=== PATIENT | female | born 1955 | race Caucasian/White ===

== ENCOUNTER 2020-04-04 05:49 | Inpatient (IN) ==
[2020-03-27 12:05] LABS: Basophils # 0.2 10*3/uL (0.0-0.2); Eosinophils # 0.2 10*3/uL (0.0-0.87); Eosinophils % 1.5 % (0.00-10.9); Hematocrit 40.9 VOL% (35.7-47.0); Hemoglobin 12.9 GM/DL (12.0-16.0); Immature Granulocytes % 0.5 %; Immature Granulocytes Absolute 0.07 #; Lymphocytes # 1.1 10*3/uL (1.4-4.0); Lymphocytes % 7.1 % (21.3-54.2); Mean Corpuscular HGB Conc 31.5 GM/DL (32-36); Mean Corpuscular Volume 85.9 FL (87-102); Mean Platelet Volume 9.7 FL (9.6-12.0); Monocytes % 5.6 % (1.7-12.7); Neutrophils % 84.3 % (38.7-73.9); Platelet Count 406 T/CUMM (130-400); Red Blood Count 4.76 MC/CUMM (3.8-5.5)
[2020-03-27 12:15] LABS: Calcium 9.5 MG/DL (8.5-10.1); Osmolality,Calculated 274.7 MOS/KG (273-304)
[2020-04-04] MEDS ORDERED: ceFAZolin 2,000 MG in PREMIX 1 EACH IV ONE (06:30)
[2020-04-04] MEDS ORDERED: FAMOTIDINE 20 MG TABLET PO ONE (06:51)
[2020-04-04] MEDS ORDERED: GABAPENTIN 400 MG CAPSULE PO ONE (06:51)
[2020-04-04] MEDS ORDERED: DIAZEPAM 5 MG TABLET PO ONE (06:51)
[2020-04-04] MEDS ORDERED: ACETAMINOPHEN 500 MG TABLET PO ONE (06:51)
[2020-04-04] MEDS ORDERED: LACTATED RINGERS 1,000 ML IV SCH (07:00)
[2020-04-04] MEDS ORDERED: ACETAMINOPHEN 325 MG TABLET PO PRN (14:00)
[2020-04-04] MEDS ORDERED: ALBUTEROL/IPRATROPIUM 3 ML NEB RESP TX PRN (14:00)
[2020-04-04] MEDS ORDERED: LIDOCAINE 2% 5 ML VIAL ONE (14:14)
[2020-04-04] MEDS ORDERED: SEVOFLURANE 1 UNIT/15 MINUTE INH ONE (14:14)
[2020-04-04] MEDS ORDERED: propofoL 200 MG/20 ML VIAL IV ONE (14:14)
[2020-04-04] MEDS ORDERED: ePHEDrine 50 MG/ML VIAL ONE (14:15)
[2020-04-04] MEDS ORDERED: MIDAZOLAM 2 MG/2 ML VIAL ONE (14:15)
[2020-04-04] MEDS ORDERED: DEXAMETHASONE 4 MG/1 ML VIAL ONE (14:15)
[2020-04-04] MEDS ORDERED: fentaNYL 100 MCG/2 ML VIAL ONE (14:15)
[2020-04-04] MEDS ORDERED: ROCURONIUM 100 MG/10 ML VIAL IV ONE (14:16)
[2020-04-04] MEDS ORDERED: PHENYLEPHRINE 1 MG/10 ML SYRINGE IV ONE (14:16)
[2020-04-04] MEDS: HYDROmorphone 2 MG/1 ML VIAL IV PRN ×8 (14:21→22:19)
[2020-04-04] MEDS ORDERED: ONDANSETRON 4 MG/2 ML VIAL IV PRN (14:24)
[2020-04-04 14:46] LABS: Bilirubin,Urine Negative (Negative); Blood, Urine Negative (Negative); Glucose,Urine (UA) Negative (Negative); Hyaline Casts,Urine 1 /LPF (0-3); Ketones,Urine Negative (Negative); Mucus,Urine Occasional /LPF (Occasional); Nitrite,Urine Negative (Negative); Protein,Urine Negative; RBC,Urine 2 /HPF (0-4); Squamous Epithelial Cell,Urine Occasional /HPF (0-10); Urine Appearance CLEAR (Clear); Urine Color Yellow (Yellow); Urine Specific Gravity 1.015 (1.001-1.035); Urine Urobilinogen < 2.0 EU/DL (0.2-1.0); WBC,Urine 3 /HPF (0-6)
[2020-04-04] MEDS ORDERED: MEPERIDINE 25 MG/1 ML VIAL ONE (14:51)
[2020-04-04] MEDS ORDERED: MEPERIDINE 25 MG/1 ML VIAL IV ONE (14:57)
[2020-04-04] MEDS: GABAPENTIN 600 MG TABLET PO SCH ×2 (17:04→21:26)
[2020-04-04] MEDS: KETOROLAC 15 MG/1 ML VIAL IV PRN (17:08)
[2020-04-04] MEDS: LACTATED RINGERS 1,000 ML IV SCH (17:17)
[2020-04-04] MEDS: CYCLOBENZAPRINE 10 MG TABLET PO SCH (21:26)
[2020-04-04] MEDS: METOCLOPRAMIDE 10 MG TABLET PO SCH (21:26)
[2020-04-04] MEDS: ceFAZolin 2,000 MG in PREMIX 1 EACH IV SCH (21:26)
[2020-04-05] MEDS: KETOROLAC 15 MG/1 ML VIAL IV PRN ×2 (00:10→09:59)
[2020-04-05] MEDS: ONDANSETRON 4 MG/2 ML VIAL IV PRN ×2 (00:26→08:12)
[2020-04-05] MEDS: HYDROmorphone 2 MG/1 ML VIAL IV PRN ×7 (01:36→20:25)
[2020-04-05] MEDS: LACTATED RINGERS 1,000 ML IV SCH ×3 (01:38→20:19)
[2020-04-05] MEDS: ceFAZolin 2,000 MG in PREMIX 1 EACH IV SCH (05:21)
[2020-04-05 05:58] LABS: Basophils % 0.3 % (0.0-0.8); Eosinophils # 0.5 10*3/uL (0.0-0.87); Eosinophils % 5.2 % (0.00-10.9); Hematocrit 33.8 VOL% (35.7-47.0); Hemoglobin 10.7 GM/DL (12.0-16.0); Immature Granulocytes Absolute 0.09 #; Lymphocytes # 0.8 10*3/uL (1.4-4.0); Lymphocytes % 9.3 % (21.3-54.2); Mean Corpuscular HGB Conc 31.7 GM/DL (32-36); Mean Corpuscular Volume 86.9 FL (87-102); Mean Platelet Volume 8.9 FL (9.6-12.0); Monocytes % 5.2 % (1.7-12.7); Platelet Count 302 T/CUMM (130-400); Red Blood Count 3.89 MC/CUMM (3.8-5.5); Red Cell Distribution Width 14.6 % (9.3-17.3); White Blood Count 8.9 T/CUMM (4-12)
[2020-04-05 06:55] LABS: Alanine Aminotransferase 21 U/L (13-56); Albumin 2.5 G/DL (3.4-5.0); Alkaline Phosphatase 64 U/L (45-117); Aspartate Amino Transferase 44 U/L (0-37); Bilirubin,Total < 0.39 MG/DL (0.2-1.0); Blood Urea Nitrogen 4 MG/DL (7-18); Calcium 8.4 MG/DL (8.5-10.1); Estimated Glom Filtration Rate 91 ML/MIN; Glucose 81 MG/DL (74-106); Osmolality,Calculated 268.8 MOS/KG (273-304); Total Protein 6.1 G/DL (6.4-8.3)
[2020-04-05] MEDS: METOCLOPRAMIDE 10 MG TABLET PO SCH (10:02)
[2020-04-05] MEDS: PANTOPRAZOLE 40 MG VIAL IV SCH (10:03)
[2020-04-05] MEDS: PROMETHAZINE INJ 12.5 MG in SODIUM CHLORIDE 0.9% 50 ML IV PRN ×2 (10:10→18:34)
[2020-04-05] MEDS: GABAPENTIN 600 MG TABLET PO SCH ×3 (11:01→20:27)
[2020-04-05] MEDS: CYCLOBENZAPRINE 10 MG TABLET PO SCH ×3 (11:01→20:23)
[2020-04-05] MEDS: SERTRALINE 100 MG TABLET PO SCH (11:14)
[2020-04-05] MEDS: ENOXAPARIN 40 MG/0.4 ML SYRINGE SUBCUT SCH (11:15)
[2020-04-05] MEDS: KETOROLAC 15 MG/1 ML VIAL IV SCH ×2 (16:30→22:01)
[2020-04-05 16:37] LABS: Hematocrit 38.8 VOL% (35.7-47.0); Hemoglobin 12.4 GM/DL (12.0-16.0)
[2020-04-06] MEDS: HYDROmorphone 2 MG/1 ML VIAL IV PRN ×9 (00:27→23:26)
[2020-04-06] MEDS: LACTATED RINGERS 1,000 ML IV SCH ×3 (02:39→13:06)
[2020-04-06] MEDS: KETOROLAC 15 MG/1 ML VIAL IV SCH ×4 (03:38→23:27)
[2020-04-06 03:49] LABS: Basophils % 0.4 % (0.0-0.8); Eosinophils % 10.6 % (0.00-10.9); Hematocrit 35.9 VOL% (35.7-47.0); Hemoglobin 11.5 GM/DL (12.0-16.0); Immature Granulocytes % 0.7 %; Immature Granulocytes Absolute 0.07 #; Lymphocytes # 1.2 10*3/uL (1.4-4.0); Lymphocytes % 11.7 % (21.3-54.2); Mean Corpuscular Volume 85.1 FL (87-102); Monocytes % 5.3 % (1.7-12.7); Neutrophils % 71.3 % (38.7-73.9); Platelet Count 307 T/CUMM (130-400); Red Blood Count 4.22 MC/CUMM (3.8-5.5); Red Cell Distribution Width 14.1 % (9.3-17.3); White Blood Count 9.8 T/CUMM (4-12)
[2020-04-06 04:24] LABS: Albumin 2.6 G/DL (3.4-5.0); Bilirubin,Total 0.5 MG/DL (0.2-1.0); Calcium 8.3 MG/DL (8.5-10.1); Total Protein 6.2 G/DL (6.4-8.3)
[2020-04-06] MEDS ORDERED: DEXTROSE 50% 25 GM/50 ML VIAL IV ONE (04:42)
[2020-04-06] MEDS ORDERED: DEXTROSE 50% 25 GM/50 ML VIAL IV PRN (04:44)
[2020-04-06] MEDS: ARFORMOTEROL 15 MCG/2 ML NEB RESP TX SCH ×2 (09:10→19:49)
[2020-04-06] MEDS: ENOXAPARIN 40 MG/0.4 ML SYRINGE SUBCUT SCH (10:16)
[2020-04-06] MEDS: CYCLOBENZAPRINE 10 MG TABLET PO SCH ×3 (10:17→21:14)
[2020-04-06] MEDS: SERTRALINE 100 MG TABLET PO SCH (10:17)
[2020-04-06] MEDS: GABAPENTIN 600 MG TABLET PO SCH ×3 (10:17→21:13)
[2020-04-06] MEDS: PANTOPRAZOLE 40 MG VIAL IV SCH (10:18)
[2020-04-06] MEDS: methylPREDNISolone SOD SUC 40 MG/1 ML VIAL IV SCH ×2 (10:19→21:17)
[2020-04-06] MEDS: PROMETHAZINE INJ 12.5 MG in SODIUM CHLORIDE 0.9% 50 ML IV PRN (11:03)
[2020-04-06] MEDS: oxyCODONE/ACETAMINOPHEN 5-325 MG TABLET PO SCH ×2 (14:33→21:27)
[2020-04-06] MEDS ORDERED: ALBUTEROL/IPRATROPIUM 3 ML NEB RESP TX SCH (15:00)
[2020-04-06 15:35] LABS: Bilirubin,Urine Negative (Negative); Blood, Urine Large mg/dL (Negative); Glucose,Urine (UA) 50 mg/dL (Negative); Ketones,Urine 20 mg/dL (Negative); Mucus,Urine Occasional /LPF (Occasional); Nitrite,Urine Negative (Negative); Protein,Urine Negative; RBC,Urine 260 /HPF (0-4); Urine Appearance CLEAR (Clear); Urine Color Yellow (Yellow); Urine Specific Gravity 1.014 (1.001-1.035); Urine Urobilinogen < 2.0 EU/DL (0.2-1.0); WBC,Urine 4 /HPF (0-6)
[2020-04-06] MEDS: PIPERACILLIN/TAZOBACTAM 3,375 MG in SODIUM CHLORIDE 0.9% 100 ML IV SCH ×2 (16:51→23:27)
[2020-04-06] MEDS: ZALEPLON 5 MG CAPSULE PO SCH (21:14)
[2020-04-07] MEDS: HYDROmorphone 2 MG/1 ML VIAL IV PRN ×3 (02:23→23:20)
[2020-04-07] MEDS: oxyCODONE/ACETAMINOPHEN 5-325 MG TABLET PO SCH ×2 (04:14→09:10)
[2020-04-07] MEDS: KETOROLAC 15 MG/1 ML VIAL IV SCH ×4 (04:57→22:22)
[2020-04-07] MEDS: LACTATED RINGERS 1,000 ML IV SCH ×4 (05:59→22:22)
[2020-04-07] MEDS: PIPERACILLIN/TAZOBACTAM 3,375 MG in SODIUM CHLORIDE 0.9% 100 ML IV SCH ×3 (06:27→22:22)
[2020-04-07] MEDS: ARFORMOTEROL 15 MCG/2 ML NEB RESP TX SCH ×2 (07:24→23:26)
[2020-04-07] MEDS: PROMETHAZINE 25 MG/1 ML VIAL IM PRN ×2 (08:04→13:42)
[2020-04-07] MEDS: methylPREDNISolone SOD SUC 40 MG/1 ML VIAL IV SCH ×2 (09:09→20:51)
[2020-04-07] MEDS: PANTOPRAZOLE 40 MG VIAL IV SCH (09:09)
[2020-04-07] MEDS: GABAPENTIN 600 MG TABLET PO SCH ×3 (09:09→20:50)
[2020-04-07] MEDS: SERTRALINE 100 MG TABLET PO SCH (09:10)
[2020-04-07] MEDS: CYCLOBENZAPRINE 10 MG TABLET PO SCH ×3 (09:10→20:51)
[2020-04-07] MEDS: ENOXAPARIN 40 MG/0.4 ML SYRINGE SUBCUT SCH (09:10)
[2020-04-07] MEDS: ONDANSETRON 4 MG/2 ML VIAL IV PRN ×2 (12:02→20:00)
[2020-04-07 13:17] LABS: Bilirubin,Urine Negative (Negative); Blood, Urine Small mg/dL (Negative); Glucose,Urine (UA) Negative (Negative); Ketones,Urine Negative (Negative); Nitrite,Urine Negative (Negative); Protein,Urine Negative; RBC,Urine 4 /HPF (0-4); Squamous Epithelial Cell,Urine Occasional /HPF (0-10); Urine Appearance CLEAR (Clear); Urine Color Straw (Yellow); Urine Specific Gravity 1.006 (1.001-1.035); Urine Urobilinogen < 2.0 EU/DL (0.2-1.0)
[2020-04-07] MEDS ORDERED: MAGNESIUM SULF RIDER 4 GM in PREMIX 1 EACH IV ONE (13:32)
[2020-04-07] MEDS: HYDROmorphone 2 MG TABLET PO SCH ×2 (13:42→20:51)
[2020-04-07] MEDS ORDERED: MAGNESIUM SULF RIDER 4 GM in PREMIX 1 EACH IV PRN (13:43)
[2020-04-07] MEDS: POTASSIUM CHLORIDE 20 MEQ TABLET PO PRN ×3 (14:55→18:26)
[2020-04-07] MEDS: ACETAMINOPHEN 500 MG TABLET PO SCH ×2 (14:56→20:50)
[2020-04-07] MEDS ORDERED: BENZONATATE 100 MG CAPSULE PO ONE (20:30)
[2020-04-07] MEDS: ZALEPLON 5 MG CAPSULE PO SCH (20:51)
[2020-04-08] MEDS: HYDROmorphone 2 MG TABLET PO SCH ×4 (01:43→19:16)
[2020-04-08] MEDS: KETOROLAC 15 MG/1 ML VIAL IV SCH ×4 (04:45→22:41)
[2020-04-08 05:34] LABS: Basophils % 0.4 % (0.0-0.8); Eosinophils # 0.2 10*3/uL (0.0-0.87); Eosinophils % 1.8 % (0.00-10.9); Hematocrit 33.2 VOL% (35.7-47.0); Hemoglobin 10.7 GM/DL (12.0-16.0); Immature Granulocytes % 0.7 %; Immature Granulocytes Absolute 0.08 #; Lymphocytes # 0.9 10*3/uL (1.4-4.0); Lymphocytes % 8.5 % (21.3-54.2); Mean Corpuscular HGB Conc 32.2 GM/DL (32-36); Mean Corpuscular Volume 85.3 FL (87-102); Mean Platelet Volume 9.1 FL (9.6-12.0); Monocytes % 3.8 % (1.7-12.7); Neutrophils % 84.8 % (38.7-73.9); Platelet Count 343 T/CUMM (130-400); Red Blood Count 3.89 MC/CUMM (3.8-5.5); Red Cell Distribution Width 13.7 % (9.3-17.3); White Blood Count 10.7 T/CUMM (4-12)
[2020-04-08 05:53] LABS: Calcium 8.3 MG/DL (8.5-10.1); Osmolality,Calculated 274.7 MOS/KG (273-304)
[2020-04-08] MEDS: PIPERACILLIN/TAZOBACTAM 3,375 MG in SODIUM CHLORIDE 0.9% 100 ML IV SCH ×3 (06:27→22:44)
[2020-04-08] MEDS: ARFORMOTEROL 15 MCG/2 ML NEB RESP TX SCH ×2 (07:30→19:58)
[2020-04-08] MEDS: GABAPENTIN 600 MG TABLET PO SCH ×3 (09:04→21:15)
[2020-04-08] MEDS: ACETAMINOPHEN 500 MG TABLET PO SCH ×3 (09:05→21:15)
[2020-04-08] MEDS: SERTRALINE 100 MG TABLET PO SCH (09:05)
[2020-04-08] MEDS: CYCLOBENZAPRINE 10 MG TABLET PO SCH ×3 (09:05→21:15)
[2020-04-08] MEDS: PANTOPRAZOLE 40 MG VIAL IV SCH (09:06)
[2020-04-08] MEDS: ENOXAPARIN 40 MG/0.4 ML SYRINGE SUBCUT SCH (09:07)
[2020-04-08] MEDS: methylPREDNISolone SOD SUC 40 MG/1 ML VIAL IV SCH ×2 (09:12→21:15)
[2020-04-08] MEDS: HYDROmorphone 2 MG/1 ML VIAL IV PRN ×2 (09:21→15:16)
[2020-04-08 16:02] LABS: Bilirubin,Urine Negative (Negative); Blood, Urine Negative (Negative); Glucose,Urine (UA) Negative (Negative); Ketones,Urine Negative (Negative); Nitrite,Urine Negative (Negative); Protein,Urine Negative; RBC,Urine 1 /HPF (0-4); Squamous Epithelial Cell,Urine Occasional /HPF (0-10); Urine Appearance CLEAR (Clear); Urine Color Yellow (Yellow); Urine Specific Gravity 1.011 (1.001-1.035); Urine Urobilinogen < 2.0 EU/DL (0.2-1.0); WBC,Urine 1 /HPF (0-6)
[2020-04-08] MEDS: LACTATED RINGERS 1,000 ML IV SCH (17:12)
[2020-04-08] MEDS: ZALEPLON 5 MG CAPSULE PO SCH (21:15)
[2020-04-09] MEDS: HYDROmorphone 2 MG TABLET PO SCH ×4 (01:40→19:23)
[2020-04-09] MEDS: KETOROLAC 15 MG/1 ML VIAL IV SCH ×4 (04:47→22:07)
[2020-04-09] MEDS: PIPERACILLIN/TAZOBACTAM 3,375 MG in SODIUM CHLORIDE 0.9% 100 ML IV SCH ×3 (06:20→22:09)
[2020-04-09 07:31] LABS: Basophils # 0.1 10*3/uL (0.0-0.2); Basophils % 0.8 % (0.0-0.8); Eosinophils # 1.5 10*3/uL (0.0-0.87); Eosinophils % 10.9 % (0.00-10.9); Hematocrit 34.1 VOL% (35.7-47.0); Hemoglobin 10.8 GM/DL (12.0-16.0); Immature Granulocytes % 0.5 %; Immature Granulocytes Absolute 0.07 #; Lymphocytes # 1.7 10*3/uL (1.4-4.0); Lymphocytes % 12.4 % (21.3-54.2); Mean Corpuscular HGB Conc 31.7 GM/DL (32-36); Mean Platelet Volume 8.6 FL (9.6-12.0); Neutrophils % 70.4 % (38.7-73.9); Platelet Count 324 T/CUMM (130-400); Red Blood Count 3.92 MC/CUMM (3.8-5.5); Red Cell Distribution Width 14.2 % (9.3-17.3); White Blood Count 13.9 T/CUMM (4-12)
[2020-04-09 08:04] LABS: Alanine Aminotransferase 12 U/L (13-56); Albumin 2.4 G/DL (3.4-5.0); Alkaline Phosphatase 61 U/L (45-117); Aspartate Amino Transferase 15 U/L (0-37); Bilirubin,Total < 0.39 MG/DL (0.2-1.0); Blood Urea Nitrogen 5 MG/DL (7-18); Calcium 8.6 MG/DL (8.5-10.1); Estimated Glom Filtration Rate 88 ML/MIN; Glucose 79 MG/DL (74-106); Osmolality,Calculated 274.4 MOS/KG (273-304); Total Protein 6.1 G/DL (6.4-8.3)
[2020-04-09] MEDS: ARFORMOTEROL 15 MCG/2 ML NEB RESP TX SCH ×2 (08:05→19:45)
[2020-04-09] MEDS: LACTATED RINGERS 1,000 ML IV SCH ×2 (08:33)
[2020-04-09] MEDS: SERTRALINE 100 MG TABLET PO SCH (08:33)
[2020-04-09] MEDS: GABAPENTIN 600 MG TABLET PO SCH ×3 (08:34→20:03)
[2020-04-09] MEDS: ENOXAPARIN 40 MG/0.4 ML SYRINGE SUBCUT SCH (08:35)
[2020-04-09] MEDS: CYCLOBENZAPRINE 10 MG TABLET PO SCH ×3 (08:35→20:03)
[2020-04-09] MEDS: methylPREDNISolone SOD SUC 40 MG/1 ML VIAL IV SCH ×2 (08:35→20:04)
[2020-04-09] MEDS: ACETAMINOPHEN 500 MG TABLET PO SCH ×3 (08:35→22:05)
[2020-04-09] MEDS: PANTOPRAZOLE 40 MG VIAL IV SCH (08:36)
[2020-04-09 10:37] LABS: Eosinophils 12 % (0-10); Hypochromasia 1+; Lymphocytes 10 % (20-55); Microcytosis 1+; Ovalocytes Slight; Platelet Estimate Normal; Segmented Neutrophils 74 % (50-85); Total Cells Counted 100
[2020-04-09] MEDS: ZALEPLON 5 MG CAPSULE PO SCH (20:03)
[2020-04-10] MEDS: HYDROmorphone 2 MG TABLET PO SCH ×2 (00:30→06:31)
[2020-04-10] MEDS: KETOROLAC 15 MG/1 ML VIAL IV SCH ×2 (04:28→10:08)
[2020-04-10] MEDS: PIPERACILLIN/TAZOBACTAM 3,375 MG in SODIUM CHLORIDE 0.9% 100 ML IV SCH (06:31)
[2020-04-10] MEDS: ARFORMOTEROL 15 MCG/2 ML NEB RESP TX SCH (07:34)
[2020-04-10] MEDS: GABAPENTIN 600 MG TABLET PO SCH (09:43)
[2020-04-10] MEDS: CYCLOBENZAPRINE 10 MG TABLET PO SCH (09:43)
[2020-04-10] MEDS: PROMETHAZINE 25 MG/1 ML VIAL IM PRN (09:43)
[2020-04-10] MEDS: SERTRALINE 100 MG TABLET PO SCH (09:43)
[2020-04-10] MEDS: ENOXAPARIN 40 MG/0.4 ML SYRINGE SUBCUT SCH (09:44)
[2020-04-10] MEDS: methylPREDNISolone SOD SUC 40 MG/1 ML VIAL IV SCH (09:44)
[2020-04-10] MEDS: PANTOPRAZOLE 40 MG VIAL IV SCH (09:45)
[2020-04-10] MEDS: HYDROmorphone 2 MG/1 ML VIAL IV PRN (10:08)
[2020-04-10] MEDS: ACETAMINOPHEN 500 MG TABLET PO SCH (12:27)
[2020-04-10 13:18] VITALS: BP 137/76
== END 2020-04-10 12:58 | disposition home health service (06) | DRG 329 ==
LOC: N.OR 05:49 → N.SDSINP 05:50 → EDSTATUS 07:30 → N.4E 14:00
PROVIDERS: ADMIT Surgery; ATTEND Surgery

== ENCOUNTER 2020-04-12 13:27 | Inpatient (IN) ==
[2020-04-12] MEDS ORDERED: SODIUM CHLORIDE 0.9% 1,000 ML IV STA (14:35)
[2020-04-12] MEDS ORDERED: ACETAMINOPHEN 325 MG TABLET PO PRN (14:40)
[2020-04-12] MEDS ORDERED: ALBUTEROL/IPRATROPIUM 3 ML NEB RESP TX PRN (14:40)
[2020-04-12] MEDS ORDERED: PROMETHAZINE 25 MG/1 ML VIAL IM PRN (14:40)
[2020-04-12 15:00] LABS: Basophils # 0.2 10*3/uL (0.0-0.2); Basophils % 0.8 % (0.0-0.8); Eosinophils # 0.2 10*3/uL (0.0-0.87); Hematocrit 43.9 VOL% (35.7-47.0); Hemoglobin 14.2 GM/DL (12.0-16.0); Immature Granulocytes % 0.6 %; Immature Granulocytes Absolute 0.14 #; Lymphocytes % 9.1 % (21.3-54.2); Mean Corpuscular HGB Conc 32.3 GM/DL (32-36); Mean Corpuscular Volume 84.4 FL (87-102); Mean Platelet Volume 9.1 FL (9.6-12.0); Neutrophils % 85.5 % (38.7-73.9); Platelet Count 563 T/CUMM (130-400); Red Cell Distribution Width 13.9 % (9.3-17.3); White Blood Count 22.5 T/CUMM (4-12)
[2020-04-12 15:20] LABS: Band Neutrophils 5 % (0-10); Lymphocytes 11 % (20-55); Platelet Estimate Increased; Segmented Neutrophils 83 % (50-85); Total Cells Counted 100
[2020-04-12 15:24] LABS: Alanine Aminotransferase 16 U/L (13-56); Alkaline Phosphatase 87 U/L (45-117); Aspartate Amino Transferase 19 U/L (0-37); Bilirubin,Total < 0.39 MG/DL (0.2-1.0); Blood Urea Nitrogen 22 MG/DL (7-18); Calcium 9.1 MG/DL (8.5-10.1); Estimated Glom Filtration Rate 30 ML/MIN; Glucose 106 MG/DL (74-106); Osmolality,Calculated 270.2 MOS/KG (273-304); Total Protein 7.8 G/DL (6.4-8.3)
[2020-04-12] MEDS: HYDROmorphone 2 MG/1 ML VIAL IV PRN ×2 (15:34→21:20)
[2020-04-12] MEDS: cefOXitin 1,000 MG in SYRINGE 1 EACH IV SCH ×2 (16:51→22:54)
[2020-04-12] MEDS: CYCLOBENZAPRINE 10 MG TABLET PO SCH ×2 (16:52→21:23)
[2020-04-12] MEDS: LACTATED RINGERS 1,000 ML IV SCH ×2 (18:10→23:00)
[2020-04-12] MEDS: GABAPENTIN 600 MG TABLET PO SCH (21:23)
[2020-04-12] MEDS: ZALEPLON 5 MG CAPSULE PO SCH (21:23)
[2020-04-12 21:57] LABS: Bacteria,Urine Occasional /HPF (Few); Bilirubin,Urine Negative (Negative); Blood, Urine Small mg/dL (Negative); Glucose,Urine (UA) Negative (Negative); Ketones,Urine Negative (Negative); Nitrite,Urine Negative (Negative); Protein,Urine Negative; RBC,Urine 1 /HPF (0-4); Squamous Epithelial Cell,Urine Occasional /HPF (0-10); Urine Appearance CLEAR (Clear); Urine Color Straw (Yellow); Urine Specific Gravity 1.019 (1.001-1.035); Urine Urobilinogen < 2.0 EU/DL (0.2-1.0); WBC,Urine <1 /HPF (0-6)
[2020-04-12] MEDS: METOCLOPRAMIDE 5 MG TABLET PO SCH (23:55)
[2020-04-13] MEDS: LACTATED RINGERS 1,000 ML IV SCH ×3 (03:50→16:27)
[2020-04-13] MEDS: cefOXitin 1,000 MG in SYRINGE 1 EACH IV SCH ×3 (04:46→21:08)
[2020-04-13 06:06] LABS: Calcium 8.2 MG/DL (8.5-10.1); Osmolality,Calculated 271.8 MOS/KG (273-304)
[2020-04-13] MEDS: HYDROmorphone 2 MG/1 ML VIAL IV PRN ×4 (07:23→20:59)
[2020-04-13] MEDS: GABAPENTIN 600 MG TABLET PO SCH ×4 (07:57→21:00)
[2020-04-13] MEDS: METOCLOPRAMIDE 5 MG TABLET PO SCH ×5 (07:57→21:01)
[2020-04-13 08:13] LABS: Basophils # 0.2 10*3/uL (0.0-0.2); Basophils % 1.4 % (0.0-0.8); Eosinophils # 0.8 10*3/uL (0.0-0.87); Eosinophils % 7.2 % (0.00-10.9); Hematocrit 30.6 VOL% (35.7-47.0); Hemoglobin 9.9 GM/DL (12.0-16.0); Immature Granulocytes % 1.1 %; Immature Granulocytes Absolute 0.13 #; Lymphocytes % 9.1 % (21.3-54.2); Mean Corpuscular HGB Conc 32.4 GM/DL (32-36); Mean Corpuscular Volume 85.2 FL (87-102); Mean Platelet Volume 8.8 FL (9.6-12.0); Monocytes % 5.2 % (1.7-12.7); Platelet Count 345 T/CUMM (130-400); Red Blood Count 3.59 MC/CUMM (3.8-5.5); Red Cell Distribution Width 13.7 % (9.3-17.3); White Blood Count 11.3 T/CUMM (4-12)
[2020-04-13] MEDS ORDERED: MAGNESIUM SULF RIDER 2 GM in PREMIX 1 EACH IV PRN (09:08)
[2020-04-13] MEDS ORDERED: MAGNESIUM SULF RIDER 4 GM in PREMIX 1 EACH IV PRN (09:14)
[2020-04-13] MEDS: SERTRALINE 100 MG TABLET PO SCH (10:02)
[2020-04-13] MEDS: CYCLOBENZAPRINE 10 MG TABLET PO SCH ×3 (10:02→21:00)
[2020-04-13] MEDS: PANTOPRAZOLE 40 MG TABLET PO SCH (10:02)
[2020-04-13] MEDS ORDERED: POTASSIUM CHLORIDE 20 MEQ TABLET PO ONE (11:00)
[2020-04-13] MEDS: ZALEPLON 5 MG CAPSULE PO SCH (21:01)
[2020-04-14] MEDS: HYDROmorphone 2 MG TABLET PO PRN ×3 (00:07→23:31)
[2020-04-14] MEDS: LACTATED RINGERS 1,000 ML IV SCH ×3 (02:10→18:02)
[2020-04-14] MEDS: cefOXitin 1,000 MG in SYRINGE 1 EACH IV SCH ×4 (02:16→20:02)
[2020-04-14] MEDS: ONDANSETRON 4 MG/2 ML VIAL IV PRN (09:08)
[2020-04-14] MEDS: CYCLOBENZAPRINE 10 MG TABLET PO SCH ×3 (09:10→21:10)
[2020-04-14] MEDS: METOCLOPRAMIDE 5 MG TABLET PO SCH ×4 (09:10→21:11)
[2020-04-14] MEDS: PANTOPRAZOLE 40 MG TABLET PO SCH (09:10)
[2020-04-14] MEDS: SERTRALINE 100 MG TABLET PO SCH (09:10)
[2020-04-14] MEDS: GABAPENTIN 600 MG TABLET PO SCH ×3 (09:10→21:11)
[2020-04-14] MEDS: HYDROmorphone 2 MG/1 ML VIAL IV PRN ×3 (09:15→20:04)
[2020-04-14] MEDS ORDERED: LEVOFLOXACIN 750 MG TABLET PO SCH (21:00)
[2020-04-14] MEDS: ZALEPLON 5 MG CAPSULE PO SCH (21:10)
[2020-04-15] MEDS: cefOXitin 1,000 MG in SYRINGE 1 EACH IV SCH ×4 (02:33→20:32)
[2020-04-15] MEDS: LACTATED RINGERS 1,000 ML IV SCH ×6 (02:34→23:54)
[2020-04-15 05:57] LABS: Basophils # 0.1 10*3/uL (0.0-0.2); Basophils % 1.8 % (0.0-0.8); Eosinophils # 0.9 10*3/uL (0.0-0.87); Eosinophils % 11.3 % (0.00-10.9); Hematocrit 27.9 VOL% (35.7-47.0); Hemoglobin 8.9 GM/DL (12.0-16.0); Immature Granulocytes % 1.3 %; Lymphocytes # 1.3 10*3/uL (1.4-4.0); Lymphocytes % 16.1 % (21.3-54.2); Mean Corpuscular HGB Conc 31.9 GM/DL (32-36); Mean Corpuscular Volume 85.1 FL (87-102); Mean Platelet Volume 9.4 FL (9.6-12.0); Monocytes % 9.8 % (1.7-12.7); Neutrophils % 59.7 % (38.7-73.9); Platelet Count 358 T/CUMM (130-400); Red Blood Count 3.28 MC/CUMM (3.8-5.5); Red Cell Distribution Width 13.5 % (9.3-17.3); White Blood Count 7.9 T/CUMM (4-12)
[2020-04-15 06:00] LABS: Calcium 8.2 MG/DL (8.5-10.1); Osmolality,Calculated 267.8 MOS/KG (273-304)
[2020-04-15 08:03] LABS: Eosinophils 6 % (0-10); Lymphocytes 7 % (20-55); Segmented Neutrophils 80 % (50-85); Total Cells Counted 100
[2020-04-15 08:04] LABS: Atypical Lymphocytes Few; Hypochromasia 2+; Microcytosis 1+; Ovalocytes Few; Platelet Estimate Normal; Polychromasia Slight
[2020-04-15] MEDS: GABAPENTIN 600 MG TABLET PO SCH ×3 (08:44→21:24)
[2020-04-15] MEDS: PANTOPRAZOLE 40 MG TABLET PO SCH (08:44)
[2020-04-15] MEDS: SERTRALINE 100 MG TABLET PO SCH (08:44)
[2020-04-15] MEDS: CYCLOBENZAPRINE 10 MG TABLET PO SCH ×3 (08:44→21:24)
[2020-04-15] MEDS: METOCLOPRAMIDE 5 MG TABLET PO SCH ×4 (08:45→21:24)
[2020-04-15] MEDS: HYDROmorphone 2 MG TABLET PO PRN ×2 (08:57→15:37)
[2020-04-15] MEDS: HYDROmorphone 2 MG/1 ML VIAL IV PRN ×2 (12:11→20:31)
[2020-04-15] MEDS: ONDANSETRON 4 MG/2 ML VIAL IV PRN (15:39)
[2020-04-15] MEDS: LEVOFLOXACIN 750 MG TABLET PO SCH (21:24)
[2020-04-15] MEDS: ZALEPLON 5 MG CAPSULE PO SCH (21:24)
[2020-04-16] MEDS: cefOXitin 1,000 MG in SYRINGE 1 EACH IV SCH ×4 (03:05→20:12)
[2020-04-16] MEDS: DEXT 5% NACL 0.45% KCL 40 MEQ 40 MEQ/1,000 ML BAG IV SCH ×3 (08:24→16:33)
[2020-04-16] MEDS: PANTOPRAZOLE 40 MG TABLET PO SCH (08:25)
[2020-04-16] MEDS: CYCLOBENZAPRINE 10 MG TABLET PO SCH ×3 (08:25→21:45)
[2020-04-16] MEDS: GABAPENTIN 600 MG TABLET PO SCH ×3 (08:25→21:46)
[2020-04-16] MEDS: METOCLOPRAMIDE 5 MG TABLET PO SCH ×2 (08:25→12:50)
[2020-04-16] MEDS: SERTRALINE 100 MG TABLET PO SCH (08:26)
[2020-04-16] MEDS: HYDROmorphone 2 MG TABLET PO PRN ×2 (08:26→16:15)
[2020-04-16] MEDS: HYDROmorphone 2 MG/1 ML VIAL IV PRN ×2 (12:50→20:11)
[2020-04-16] MEDS: METOCLOPRAMIDE 10 MG TABLET PO SCH ×2 (17:57→21:45)
[2020-04-16] MEDS: ZALEPLON 5 MG CAPSULE PO SCH (21:45)
[2020-04-16] MEDS: LEVOFLOXACIN 750 MG TABLET PO SCH (21:46)
[2020-04-17] MEDS: cefOXitin 1,000 MG in SYRINGE 1 EACH IV SCH ×2 (03:25→09:06)
[2020-04-17] MEDS: DEXT 5% NACL 0.45% KCL 40 MEQ 40 MEQ/1,000 ML BAG IV SCH (03:26)
[2020-04-17] MEDS: SERTRALINE 100 MG TABLET PO SCH (09:05)
[2020-04-17] MEDS: GABAPENTIN 600 MG TABLET PO SCH (09:05)
[2020-04-17] MEDS: PANTOPRAZOLE 40 MG TABLET PO SCH (09:05)
[2020-04-17] MEDS: METOCLOPRAMIDE 10 MG TABLET PO SCH (09:05)
[2020-04-17] MEDS: CYCLOBENZAPRINE 10 MG TABLET PO SCH (09:06)
[2020-04-17] MEDS: HYDROmorphone 2 MG/1 ML VIAL IV PRN (09:06)
[2020-04-17 11:29] VITALS: BP 108/43
== END 2020-04-17 12:43 | disposition home health service (06) | DRG 391 ==
LOC: EDBD → EDUNIT# → N.ED 13:27 → N.EDINP 14:40 → N.5E 19:40
PROVIDERS: ADMIT Surgery; ATTEND Surgery

== ENCOUNTER 2020-04-23 17:57 | Inpatient (IN) ==
[2020-04-23] MEDS ORDERED: ONDANSETRON 4 MG/2 ML VIAL IV STA (18:49)
[2020-04-23] MEDS ORDERED: SODIUM CHLORIDE 0.9% 1,000 ML IV STA (18:49)
[2020-04-23] MEDS ORDERED: PANTOPRAZOLE 40 MG VIAL IV STA (18:49)
[2020-04-23] MEDS ORDERED: METOCLOPRAMIDE 10 MG/2 ML VIAL IV STA (18:49)
[2020-04-23] MEDS ORDERED: ALBUTEROL/IPRATROPIUM 3 ML NEB RESP TX STA (18:51)
[2020-04-23] MEDS ORDERED: methylPREDNISolone SOD SUC 125 MG/2 ML VIAL IV STA (18:51)
[2020-04-23 18:56] LABS: Basophils # 0.2 10*3/uL (0.0-0.2); Basophils % 1.3 % (0.0-0.8); Eosinophils # 0.7 10*3/uL (0.0-0.87); Eosinophils % 4.6 % (0.00-10.9); Hemoglobin 11.8 GM/DL (12.0-16.0); Immature Granulocytes % 0.8 %; Immature Granulocytes Absolute 0.12 #; Lymphocytes # 2.6 10*3/uL (1.4-4.0); Lymphocytes % 17.3 % (21.3-54.2); Mean Corpuscular HGB Conc 32.8 GM/DL (32-36); Mean Platelet Volume 8.8 FL (9.6-12.0); Monocytes % 6.6 % (1.7-12.7); Neutrophils % 69.4 % (38.7-73.9); Platelet Count 892 T/CUMM (130-400); Red Blood Count 4.39 MC/CUMM (3.8-5.5); Red Cell Distribution Width 13.4 % (9.3-17.3); White Blood Count 14.9 T/CUMM (4-12)
[2020-04-23 19:03] LABS: PT Patient Result 21.2 SECS (9.8-11.9)
[2020-04-23 19:17] LABS: Alanine Aminotransferase 13 U/L (13-56); Albumin 2.8 G/DL (3.4-5.0); Alkaline Phosphatase 83 U/L (45-117); Amylase 49 U/L (25-115); Aspartate Amino Transferase 31 U/L (0-37); Bilirubin,Total < 0.39 MG/DL (0.2-1.0); Blood Urea Nitrogen 11 MG/DL (7-18); Calcium 8.7 MG/DL (8.5-10.1); Estimated Glom Filtration Rate 47 ML/MIN; Glucose 117 MG/DL (74-106); Osmolality,Calculated 265.4 MOS/KG (273-304); Total Protein 7.6 G/DL (6.4-8.3)
[2020-04-23] MEDS ORDERED: MAGNESIUM SULF RIDER 2 GM in PREMIX 1 EACH IV STA (19:57)
[2020-04-23 21:57] LABS: Bacteria,Urine Few /HPF (Few); Bilirubin,Urine Negative (Negative); Blood, Urine Small mg/dL (Negative); Glucose,Urine (UA) Negative (Negative); Hyaline Casts,Urine 26 /LPF (0-3); Ketones,Urine Negative (Negative); Mucus,Urine Occasional /LPF (Occasional); Nitrite,Urine Negative (Negative); Protein,Urine Negative; RBC,Urine 3 /HPF (0-4); Squamous Epithelial Cell,Urine Few /HPF (0-10); Urine Appearance Slightly Hazy (Clear); Urine Color Yellow (Yellow); Urine Specific Gravity 1.014 (1.001-1.035); Urine Urobilinogen < 2.0 EU/DL (0.2-1.0); WBC,Urine 3 /HPF (0-6)
[2020-04-24] MEDS ORDERED: ACETAMINOPHEN 325 MG TABLET PO PRN (00:38)
[2020-04-24] MEDS: SODIUM CHLORIDE 0.9% 1,000 ML IV SCH ×3 (01:38→19:58)
[2020-04-24] MEDS: HYDROmorphone 2 MG/1 ML VIAL IV PRN ×2 (01:45→06:46)
[2020-04-24] MEDS: ALBUTEROL/IPRATROPIUM 3 ML NEB RESP TX SCH ×4 (03:40→19:34)
[2020-04-24 06:51] LABS: Basophils # 0.1 10*3/uL (0.0-0.2); Eosinophils % 0.6 % (0.00-10.9); Hematocrit 28.9 VOL% (35.7-47.0); Hemoglobin 9.4 GM/DL (12.0-16.0); Immature Granulocytes % 1.1 %; Immature Granulocytes Absolute 0.08 #; Lymphocytes # 1.4 10*3/uL (1.4-4.0); Lymphocytes % 19.9 % (21.3-54.2); Mean Corpuscular HGB Conc 32.5 GM/DL (32-36); Mean Corpuscular Volume 82.1 FL (87-102); Mean Platelet Volume 8.7 FL (9.6-12.0); Monocytes % 3.3 % (1.7-12.7); Neutrophils % 74.1 % (38.7-73.9); Platelet Count 610 T/CUMM (130-400); Red Blood Count 3.52 MC/CUMM (3.8-5.5); Red Cell Distribution Width 13.2 % (9.3-17.3); White Blood Count 7.2 T/CUMM (4-12)
[2020-04-24 07:05] LABS: Albumin 2.3 G/DL (3.4-5.0); Calcium 8.2 MG/DL (8.5-10.1); Osmolality,Calculated 267.2 MOS/KG (273-304); Total Protein 6.3 G/DL (6.4-8.3)
[2020-04-24] MEDS: PANTOPRAZOLE 40 MG VIAL IV SCH (09:09)
[2020-04-24] MEDS ORDERED: PROMETHAZINE 25 MG TABLET PO PRN (09:37)
[2020-04-24] MEDS ORDERED: MAGNESIUM SULF RIDER 2 GM in PREMIX 1 EACH IV ONE (10:00)
[2020-04-24] MEDS: oxyCODONE/ACETAMINOPHEN 5-325 MG TABLET PO PRN ×3 (11:45→20:32)
[2020-04-24] MEDS: ZINC OXIDE PASTE 113 GM TUBE TOP SCH ×2 (12:19→20:30)
[2020-04-24] MEDS: METOCLOPRAMIDE 5 MG TABLET PO SCH ×3 (12:26→20:31)
[2020-04-24] MEDS: GABAPENTIN 600 MG TABLET PO SCH ×3 (12:57→20:33)
[2020-04-24] MEDS: CYCLOBENZAPRINE 10 MG TABLET PO SCH ×2 (15:12→20:31)
[2020-04-24] MEDS: metroNIDAZOLE 500 MG TABLET PO SCH ×2 (15:12→20:31)
[2020-04-24] MEDS: CIPROFLOXACIN 500 MG TABLET PO SCH (16:19)
[2020-04-24] MEDS: ZALEPLON 5 MG CAPSULE PO SCH (20:31)
[2020-04-25] MEDS: ALBUTEROL/IPRATROPIUM 3 ML NEB RESP TX SCH ×6 (00:24→22:25)
[2020-04-25] MEDS: SODIUM CHLORIDE 0.9% 1,000 ML IV SCH ×2 (02:45→10:07)
[2020-04-25 04:13] LABS: Basophils # 0.2 10*3/uL (0.0-0.2); Eosinophils # 0.4 10*3/uL (0.0-0.87); Eosinophils % 4.6 % (0.00-10.9); Hematocrit 25.7 VOL% (35.7-47.0); Hemoglobin 8.3 GM/DL (12.0-16.0); Immature Granulocytes % 0.5 %; Immature Granulocytes Absolute 0.04 #; Lymphocytes # 2.3 10*3/uL (1.4-4.0); Mean Corpuscular HGB Conc 32.3 GM/DL (32-36); Mean Corpuscular Volume 83.2 FL (87-102); Mean Platelet Volume 8.5 FL (9.6-12.0); Monocytes % 7.5 % (1.7-12.7); Neutrophils % 59.4 % (38.7-73.9); Platelet Count 489 T/CUMM (130-400); Red Blood Count 3.09 MC/CUMM (3.8-5.5); Red Cell Distribution Width 13.5 % (9.3-17.3); White Blood Count 8.7 T/CUMM (4-12)
[2020-04-25 04:29] LABS: INR 2.3; PT Patient Result 23.5 SECS (9.8-11.9)
[2020-04-25 04:33] LABS: Calcium 7.7 MG/DL (8.5-10.1)
[2020-04-25] MEDS: METOCLOPRAMIDE 5 MG TABLET PO SCH ×4 (08:14→20:05)
[2020-04-25] MEDS: CYCLOBENZAPRINE 10 MG TABLET PO SCH ×3 (08:14→20:05)
[2020-04-25] MEDS: metroNIDAZOLE 500 MG TABLET PO SCH ×3 (08:15→20:05)
[2020-04-25] MEDS: CIPROFLOXACIN 500 MG TABLET PO SCH ×2 (08:15→16:12)
[2020-04-25] MEDS: SERTRALINE 100 MG TABLET PO SCH (08:15)
[2020-04-25] MEDS: predniSONE 5 MG TABLET PO SCH (08:15)
[2020-04-25] MEDS: GABAPENTIN 600 MG TABLET PO SCH ×4 (08:16→20:05)
[2020-04-25] MEDS: PANTOPRAZOLE 40 MG VIAL IV SCH (08:18)
[2020-04-25] MEDS ORDERED: MAGNESIUM SULF RIDER 4 GM in PREMIX 1 EACH IV PRN (08:22)
[2020-04-25] MEDS ORDERED: MAGNESIUM SULF RIDER 2 GM in PREMIX 1 EACH IV PRN (08:22)
[2020-04-25] MEDS: POTASSIUM CHLORIDE 20 MEQ TABLET PO PRN ×5 (08:53→16:14)
[2020-04-25] MEDS: oxyCODONE/ACETAMINOPHEN 5-325 MG TABLET PO PRN ×4 (08:59→20:05)
[2020-04-25] MEDS: ZINC OXIDE PASTE 113 GM TUBE TOP SCH ×2 (09:26→20:04)
[2020-04-25 13:50] LABS: Hepatitis B Core IgM Quant 0.09 Index; Hepatitis B Surface Ag Quant < 0.10 Index; Hepatitis B Surface Ag Result Negative (Negative); Hepatitis C Virus Ab Result Negative (Negative)
[2020-04-25 14:07] LABS: % Iron Saturation 9.1 % (18-50); Ferritin 136.6 ng/ml (8-252); Prealbumin 14.7 MG/DL (20-40)
[2020-04-25] MEDS: PHYTONADIONE 5 MG/5 ML ORAL.SYR PO SCH (14:07)
[2020-04-25 14:11] LABS: Folate 12.2 NG/ML (5.4-24.0)
[2020-04-25] MEDS: TRIAMCINOLONE 0.1% CREAM 15 GM TUBE TOP SCH (20:04)
[2020-04-25] MEDS: ZALEPLON 5 MG CAPSULE PO SCH (20:05)
[2020-04-26 06:08] LABS: Basophils # 0.1 10*3/uL (0.0-0.2); Basophils % 1.6 % (0.0-0.8); Eosinophils # 0.5 10*3/uL (0.0-0.87); Eosinophils % 5.9 % (0.00-10.9); Hematocrit 26.2 VOL% (35.7-47.0); Hemoglobin 8.6 GM/DL (12.0-16.0); Immature Granulocytes % 0.4 %; Immature Granulocytes Absolute 0.04 #; Lymphocytes # 1.7 10*3/uL (1.4-4.0); Lymphocytes % 19.5 % (21.3-54.2); Mean Corpuscular HGB Conc 32.8 GM/DL (32-36); Mean Corpuscular Volume 82.1 FL (87-102); Mean Platelet Volume 8.8 FL (9.6-12.0); Monocytes % 7.8 % (1.7-12.7); Neutrophils % 64.8 % (38.7-73.9); Platelet Count 534 T/CUMM (130-400); Red Blood Count 3.19 MC/CUMM (3.8-5.5); Red Cell Distribution Width 13.5 % (9.3-17.3); White Blood Count 8.9 T/CUMM (4-12)
[2020-04-26 06:18] LABS: INR 1.6; PT Patient Result 16.4 SECS (9.8-11.9)
[2020-04-26 06:23] LABS: Calcium 8.1 MG/DL (8.5-10.1); Osmolality,Calculated 279.1 MOS/KG (273-304)
[2020-04-26] MEDS: ALBUTEROL/IPRATROPIUM 3 ML NEB RESP TX SCH ×3 (07:10→21:10)
[2020-04-26] MEDS: LACTATED RINGERS 1,000 ML IV SCH (08:33)
[2020-04-26] MEDS ORDERED: propofoL 200 MG/20 ML VIAL IV ONE (08:36)
[2020-04-26] MEDS ORDERED: LIDOCAINE 2% 5 ML VIAL ONE (08:36)
[2020-04-26] MEDS: CIPROFLOXACIN 500 MG TABLET PO SCH ×2 (10:48→16:05)
[2020-04-26] MEDS: predniSONE 5 MG TABLET PO SCH (10:48)
[2020-04-26] MEDS: SERTRALINE 100 MG TABLET PO SCH (10:48)
[2020-04-26] MEDS: CYCLOBENZAPRINE 10 MG TABLET PO SCH ×3 (10:48→21:03)
[2020-04-26] MEDS: METOCLOPRAMIDE 5 MG TABLET PO SCH ×4 (10:48→21:03)
[2020-04-26] MEDS: metroNIDAZOLE 500 MG TABLET PO SCH ×3 (10:49→21:03)
[2020-04-26] MEDS: ZINC OXIDE PASTE 113 GM TUBE TOP SCH ×3 (10:49→21:03)
[2020-04-26] MEDS: GABAPENTIN 600 MG TABLET PO SCH ×4 (10:49→21:03)
[2020-04-26] MEDS: PANTOPRAZOLE 40 MG VIAL IV SCH (10:49)
[2020-04-26] MEDS: TRIAMCINOLONE 0.1% CREAM 15 GM TUBE TOP SCH ×2 (10:51→21:03)
[2020-04-26] MEDS: oxyCODONE/ACETAMINOPHEN 5-325 MG TABLET PO PRN ×3 (10:55→19:32)
[2020-04-26] MEDS: PHYTONADIONE 5 MG/5 ML ORAL.SYR PO SCH (10:58)
[2020-04-26] MEDS: ONDANSETRON 4 MG/2 ML VIAL IV PRN (13:38)
[2020-04-26] MEDS: SODIUM CHLORIDE 0.9% 1,000 ML IV SCH ×2 (14:25→22:29)
[2020-04-26] MEDS: ZALEPLON 5 MG CAPSULE PO SCH (21:04)
[2020-04-27] MEDS: SODIUM CHLORIDE 0.9% 1,000 ML IV SCH ×2 (06:42→15:08)
[2020-04-27] MEDS: ALBUTEROL/IPRATROPIUM 3 ML NEB RESP TX SCH ×2 (06:48→13:38)
[2020-04-27] MEDS: LACTATED RINGERS 1,000 ML IV SCH (07:33)
[2020-04-27] MEDS ORDERED: LACTATED RINGERS 1,000 ML IV SCH (08:00)
[2020-04-27] MEDS ORDERED: LIDOCAINE 2% 5 ML VIAL ONE (09:37)
[2020-04-27] MEDS ORDERED: propofoL 200 MG/20 ML VIAL IV ONE (09:37)
[2020-04-27] MEDS ORDERED: SUCCINYLCHOLINE 200 MG/10 ML VIAL ONE (09:37)
[2020-04-27] MEDS ORDERED: ROCURONIUM 50 MG/5 ML VIAL IV ONE (09:37)
[2020-04-27] MEDS: METOCLOPRAMIDE 5 MG TABLET PO SCH ×2 (09:38→11:14)
[2020-04-27] MEDS: GABAPENTIN 600 MG TABLET PO SCH ×2 (09:39→12:18)
[2020-04-27] MEDS ORDERED: SEVOFLURANE 1 UNIT/15 MINUTE INH ONE (09:56)
[2020-04-27] MEDS ORDERED: ONDANSETRON 4 MG/2 ML VIAL ONE (09:56)
[2020-04-27] MEDS ORDERED: fentaNYL 100 MCG/2 ML VIAL ONE (09:59)
[2020-04-27] MEDS: PHYTONADIONE 5 MG/5 ML ORAL.SYR PO SCH (11:13)
[2020-04-27] MEDS: ZINC OXIDE PASTE 113 GM TUBE TOP SCH (11:14)
[2020-04-27] MEDS: SERTRALINE 100 MG TABLET PO SCH (11:14)
[2020-04-27] MEDS: CIPROFLOXACIN 500 MG TABLET PO SCH (11:14)
[2020-04-27] MEDS: CYCLOBENZAPRINE 10 MG TABLET PO SCH ×2 (11:14→15:08)
[2020-04-27] MEDS: TRIAMCINOLONE 0.1% CREAM 15 GM TUBE TOP SCH (11:14)
[2020-04-27] MEDS: metroNIDAZOLE 500 MG TABLET PO SCH ×2 (11:14→15:08)
[2020-04-27] MEDS: predniSONE 5 MG TABLET PO SCH (11:14)
[2020-04-27] MEDS: oxyCODONE/ACETAMINOPHEN 5-325 MG TABLET PO PRN ×2 (11:14→15:08)
[2020-04-27] MEDS: PANTOPRAZOLE 40 MG VIAL IV SCH (11:15)
[2020-04-27] MEDS: ONDANSETRON 4 MG/2 ML VIAL IV PRN (11:17)
[2020-04-27 11:36] VITALS: BP 107/58
[2020-04-28] MEDS ORDERED: LACTATED RINGERS 1,000 ML IV SCH (11:00)
== END 2020-04-27 16:20 | disposition home health service (06) | DRG 641 ==
LOC: N.ED 17:57 → N.EDINP 17:57 → N.3E 22:14
PROVIDERS: ADMIT Surgery; ATTEND Surgery

== ENCOUNTER 2020-06-28 19:24 | Inpatient (IN) ==
[2020-06-28] MEDS ORDERED: PANTOPRAZOLE 40 MG VIAL IV STA (20:24)
[2020-06-28] MEDS ORDERED: ONDANSETRON 4 MG/2 ML VIAL IV STA (20:24)
[2020-06-28] MEDS ORDERED: KETOROLAC 30 MG/1 ML VIAL IV STA (20:24)
[2020-06-28] MEDS ORDERED: SODIUM CHLORIDE 0.9% 1,000 ML IV STA (20:24)
[2020-06-28] MEDS ORDERED: HYDROmorphone 2 MG/1 ML VIAL IV STA (20:24)
[2020-06-28 21:39] LABS: Basophils % 0.7 % (0.0-0.8); Eosinophils % 0.5 % (0.00-10.9); Hematocrit 36.9 VOL% (35.7-47.0); Hemoglobin 10.7 GM/DL (12.0-16.0); Immature Granulocytes % 0.5 %; Immature Granulocytes Absolute 0.02 #; Lymphocytes # 0.6 10*3/uL (1.4-4.0); Lymphocytes % 14.7 % (21.3-54.2); Mean Corpuscular Volume 81.6 FL (87-102); Mean Platelet Volume 9.1 FL (9.6-12.0); Monocytes % 3.7 % (1.7-12.7); Neutrophils % 79.9 % (38.7-73.9); Platelet Count 592 T/CUMM (130-400); Red Blood Count 4.52 MC/CUMM (3.8-5.5); White Blood Count 4.3 T/CUMM (4-12)
[2020-06-28 21:45] LABS: Alanine Aminotransferase 17 U/L (13-56); Albumin 2.3 G/DL (3.4-5.0); Alkaline Phosphatase 92 U/L (45-117); Amylase 36 U/L (25-115); Aspartate Amino Transferase 37 U/L (0-37); Bilirubin,Total < 0.39 MG/DL (0.2-1.0); Blood Urea Nitrogen 12 MG/DL (7-18); Calcium 8.7 MG/DL (8.5-10.1); Carbon Dioxide 24 MMOL/L (21-32); Estimated Glom Filtration Rate 79 ML/MIN; Glucose 101 MG/DL (74-106); Osmolality,Calculated 274.7 MOS/KG (273-304); Potassium 4.7 MMOL/L (3.5-5.1); Sodium 138 MMOL/L (136-145)
[2020-06-28] MEDS ORDERED: MAGNESIUM SULF RIDER 2 GM in PREMIX 1 EACH IV STA (21:49)
[2020-06-28] MEDS ORDERED: HYDROmorphone 2 MG/1 ML VIAL IV ONE (22:16)
[2020-06-29] MEDS ORDERED: cefOXitin 2,000 MG in SYRINGE 1 EACH IV ONE (00:27)
[2020-06-29] MEDS ORDERED: PIPERACILLIN/TAZOBACTAM 3,375 MG in SODIUM CHLORIDE 0.9% 100 ML IV STA (00:40)
[2020-06-29] MEDS ORDERED: MIDAZOLAM 2 MG/2 ML VIAL ONE (00:45)
[2020-06-29] MEDS ORDERED: ROCURONIUM 50 MG/5 ML VIAL IV ONE (00:46)
[2020-06-29] MEDS ORDERED: LIDOCAINE 2% 5 ML VIAL ONE (00:46)
[2020-06-29] MEDS ORDERED: SEVOFLURANE 1 UNIT/15 MINUTE INH ONE ×3 (00:46→02:13)
[2020-06-29] MEDS ORDERED: SUCCINYLCHOLINE 200 MG/10 ML VIAL ONE (00:46)
[2020-06-29] MEDS ORDERED: fentaNYL 100 MCG/2 ML VIAL ONE (00:46)
[2020-06-29] MEDS ORDERED: propofoL 200 MG/20 ML VIAL IV ONE (00:46)
[2020-06-29] MEDS ORDERED: HYDROCORTISONE 100 MG VIAL ONE (00:58)
[2020-06-29] MEDS ORDERED: ALBUMIN 5% 12.5 GM/250 ML VIAL IV ONE (01:28)
[2020-06-29] MEDS ORDERED: SODIUM CHLORIDE 0.9% 250 ML IV ONE (01:30)
[2020-06-29] MEDS ORDERED: PHENYLEPHRINE 10 MG/1 ML VIAL IV ONE (01:30)
[2020-06-29] MEDS ORDERED: SUGAMMADEX 200 MG/2 ML VIAL IV ONE (02:12)
[2020-06-29] MEDS ORDERED: LACTATED RINGERS 2,000 ML IV ONE (02:13)
[2020-06-29 03:25] LABS: Bilirubin,Urine Negative (Negative); Blood, Urine Negative (Negative); Glucose,Urine (UA) Negative (Negative); Hyaline Casts,Urine 12 /LPF (0-3); Ketones,Urine Negative (Negative); Mucus,Urine Occasional /LPF (Occasional); Nitrite,Urine Negative (Negative); Protein,Urine Negative; RBC,Urine 2 /HPF (0-4); Urine Appearance CLEAR (Clear); Urine Color Amber (Yellow); Urine Specific Gravity 1.031 (1.001-1.035); Urine Urobilinogen < 2.0 EU/DL (0.2-1.0); WBC,Urine 1 /HPF (0-6)
[2020-06-29] MEDS ORDERED: ACETAMINOPHEN 1,000 MG/100 ML VIAL IV ONE (03:25)
[2020-06-29] MEDS ORDERED: KETOROLAC 30 MG/1 ML VIAL ONE (03:25)
[2020-06-29] MEDS ORDERED: KETOROLAC 30 MG/1 ML VIAL IV STA (03:33)
[2020-06-29] MEDS ORDERED: ACETAMINOPHEN IV ONE (03:39)
[2020-06-29] MEDS ORDERED: KETOROLAC 15 MG/1 ML VIAL IV PRN (04:30)
[2020-06-29] MEDS ORDERED: ONDANSETRON 4 MG/2 ML VIAL IV PRN (04:30)
[2020-06-29 07:45] LABS: Calcium 8.7 MG/DL (8.5-10.1); Osmolality,Calculated 274.7 MOS/KG (273-304); Potassium 4.2 MMOL/L (3.5-5.1)
[2020-06-29 07:46] LABS: Basophils % 0.4 % (0.0-0.8); Eosinophils % 0.1 % (0.00-10.9); Hematocrit 29.3 VOL% (35.7-47.0); Immature Granulocytes % 0.7 %; Immature Granulocytes Absolute 0.05 #; Lymphocytes # 0.6 10*3/uL (1.4-4.0); Lymphocytes % 8.1 % (21.3-54.2); Mean Corpuscular HGB Conc 29.7 GM/DL (32-36); Mean Corpuscular Volume 80.7 FL (87-102); Mean Platelet Volume 9.5 FL (9.6-12.0); Monocytes % 4.1 % (1.7-12.7); Neutrophils % 86.6 % (38.7-73.9); Red Blood Count 3.63 MC/CUMM (3.8-5.5); Red Cell Distribution Width 15.9 % (9.3-17.3)
[2020-06-29 07:49] LABS: White Blood Count 7.2 T/CUMM (4-12)
[2020-06-29 07:50] LABS: Hemoglobin 8.7 GM/DL (12.0-16.0); Platelet Count 415 T/CUMM (130-400)
[2020-06-29 07:55] LABS: Band Neutrophils 19 % (0-10); Hypochromasia 1+; Lymphocytes 7 % (20-55); Microcytosis 1+; Platelet Estimate Adequate; Segmented Neutrophils 70 % (50-85); Total Cells Counted 100
[2020-06-29] MEDS: HYDROmorphone 2 MG/1 ML VIAL IV PRN ×3 (08:12→16:36)
[2020-06-29] MEDS: PROMETHAZINE 25 MG/1 ML VIAL IM PRN ×2 (08:12→13:45)
[2020-06-29] MEDS ORDERED: LACTATED RINGERS 1,000 ML IV ONE (08:17)
[2020-06-29] MEDS ORDERED: PANTOPRAZOLE 40 MG VIAL IV SCH (09:00)
[2020-06-29] MEDS: GABAPENTIN 600 MG TABLET PO SCH ×4 (09:49→20:42)
[2020-06-29] MEDS: predniSONE 5 MG TABLET PO SCH (09:49)
[2020-06-29] MEDS: SERTRALINE 100 MG TABLET PO SCH (09:49)
[2020-06-29] MEDS: CYCLOBENZAPRINE 10 MG TABLET PO SCH ×3 (09:49→20:40)
[2020-06-29] MEDS: PIPERACILLIN/TAZOBACTAM 3,375 MG in SODIUM CHLORIDE 0.9% 100 ML IV SCH ×2 (09:50→16:35)
[2020-06-29] MEDS: PANTOPRAZOLE 40 MG TABLET PO SCH (09:52)
[2020-06-29] MEDS: LACTATED RINGERS 1,000 ML IV SCH ×2 (10:07→18:26)
[2020-06-29] MEDS: METOCLOPRAMIDE 5 MG TABLET PO SCH ×3 (11:58→20:40)
[2020-06-29 12:17] LABS: Hematocrit 28.6 VOL% (35.7-47.0); Hemoglobin 8.3 GM/DL (12.0-16.0)
[2020-06-29 12:28] LABS: INR 1.2; PT Patient Result 13.1 SECS (9.8-11.9); Partial Thromboplastin Time 35.1 SECS (23.9-33.8)
[2020-06-29] MEDS: SIMVASTATIN 20 MG TABLET PO SCH (20:40)
[2020-06-29] MEDS: ZALEPLON 5 MG CAPSULE PO SCH (20:40)
[2020-06-29] MEDS ORDERED: ENOXAPARIN 40 MG/0.4 ML SYRINGE SUBCUT SCH (21:00)
[2020-06-30] MEDS: PIPERACILLIN/TAZOBACTAM 3,375 MG in SODIUM CHLORIDE 0.9% 100 ML IV SCH ×3 (01:30→17:12)
[2020-06-30] MEDS: LACTATED RINGERS 1,000 ML IV SCH ×3 (02:00→17:57)
[2020-06-30 05:40] LABS: Basophils # 0.1 10*3/uL (0.0-0.2); Basophils % 0.7 % (0.0-0.8); Eosinophils # 0.4 10*3/uL (0.0-0.87); Hematocrit 27.4 VOL% (35.7-47.0); Hemoglobin 8.2 GM/DL (12.0-16.0); Immature Granulocytes % 0.9 %; Immature Granulocytes Absolute 0.08 #; Lymphocytes # 0.9 10*3/uL (1.4-4.0); Lymphocytes % 9.8 % (21.3-54.2); Mean Corpuscular HGB Conc 29.9 GM/DL (32-36); Mean Corpuscular Volume 79.7 FL (87-102); Mean Platelet Volume 9.2 FL (9.6-12.0); Monocytes % 1.9 % (1.7-12.7); Neutrophils % 82.7 % (38.7-73.9); Platelet Count 384 T/CUMM (130-400); Red Blood Count 3.44 MC/CUMM (3.8-5.5); Red Cell Distribution Width 16.2 % (9.3-17.3); White Blood Count 8.8 T/CUMM (4-12)
[2020-06-30 06:13] LABS: Band Neutrophils 24 % (0-10); Eosinophils 4 % (0-10); Lymphocytes 8 % (20-55); Metamyelocytes 3 %; Platelet Estimate Normal; Segmented Neutrophils 59 % (50-85); Total Cells Counted 100
[2020-06-30 06:14] LABS: Calcium 8.4 MG/DL (8.5-10.1); Potassium 3.8 MMOL/L (3.5-5.1)
[2020-06-30] MEDS: SERTRALINE 100 MG TABLET PO SCH (08:25)
[2020-06-30] MEDS: METOCLOPRAMIDE 5 MG TABLET PO SCH ×4 (08:25→20:13)
[2020-06-30] MEDS: predniSONE 5 MG TABLET PO SCH (08:25)
[2020-06-30] MEDS: PANTOPRAZOLE 40 MG TABLET PO SCH (08:25)
[2020-06-30] MEDS: CYCLOBENZAPRINE 10 MG TABLET PO SCH ×3 (08:25→20:13)
[2020-06-30] MEDS: GABAPENTIN 600 MG TABLET PO SCH ×4 (09:38→20:13)
[2020-06-30] MEDS: HYDROmorphone 2 MG/1 ML VIAL IV PRN ×3 (11:45→17:00)
[2020-06-30] MEDS: ZALEPLON 5 MG CAPSULE PO SCH (20:13)
[2020-06-30] MEDS: SIMVASTATIN 20 MG TABLET PO SCH (20:18)
[2020-07-01] MEDS: PIPERACILLIN/TAZOBACTAM 3,375 MG in SODIUM CHLORIDE 0.9% 100 ML IV SCH ×3 (02:02→16:48)
[2020-07-01 05:15] LABS: Basophils % 0.3 % (0.0-0.8); Eosinophils # 0.6 10*3/uL (0.0-0.87); Eosinophils % 5.2 % (0.00-10.9); Hematocrit 26.6 VOL% (35.7-47.0); Immature Granulocytes % 1.1 %; Immature Granulocytes Absolute 0.12 #; Lymphocytes # 0.9 10*3/uL (1.4-4.0); Lymphocytes % 8.9 % (21.3-54.2); Mean Corpuscular HGB Conc 30.1 GM/DL (32-36); Mean Corpuscular Volume 79.9 FL (87-102); Mean Platelet Volume 9.1 FL (9.6-12.0); Neutrophils % 81.5 % (38.7-73.9); Platelet Count 389 T/CUMM (130-400); Red Blood Count 3.33 MC/CUMM (3.8-5.5); White Blood Count 10.6 T/CUMM (4-12)
[2020-07-01 05:37] LABS: Calcium 8.3 MG/DL (8.5-10.1); Osmolality,Calculated 271.7 MOS/KG (273-304); Potassium 3.2 MMOL/L (3.5-5.1)
[2020-07-01 05:49] LABS: Band Neutrophils 6 % (0-10); Eosinophils 2 % (0-10); Lymphocytes 2 % (20-55); Metamyelocytes 1 %; Segmented Neutrophils 84 % (50-85); Total Cells Counted 100
[2020-07-01 05:50] LABS: Hypochromasia 1+; Microcytosis 1+; Ovalocytes Slight
[2020-07-01 05:51] LABS: Platelet Estimate Normal
[2020-07-01] MEDS: PANTOPRAZOLE 40 MG TABLET PO SCH (07:02)
[2020-07-01] MEDS: METOCLOPRAMIDE 5 MG TABLET PO SCH ×4 (07:02→20:14)
[2020-07-01] MEDS: LACTATED RINGERS 1,000 ML IV SCH (07:05)
[2020-07-01] MEDS: HYDROmorphone 2 MG/1 ML VIAL IV PRN ×3 (07:06→18:06)
[2020-07-01] MEDS: GABAPENTIN 600 MG TABLET PO SCH ×4 (09:30→20:14)
[2020-07-01] MEDS: predniSONE 5 MG TABLET PO SCH (09:30)
[2020-07-01] MEDS: CYCLOBENZAPRINE 10 MG TABLET PO SCH ×3 (09:30→20:14)
[2020-07-01] MEDS: POTASSIUM CHLORIDE 20 MEQ TABLET PO PRN ×4 (09:30→16:47)
[2020-07-01] MEDS: SERTRALINE 100 MG TABLET PO SCH (09:31)
[2020-07-01] MEDS: SIMVASTATIN 20 MG TABLET PO SCH (20:13)
[2020-07-01] MEDS: ZALEPLON 5 MG CAPSULE PO SCH (20:14)
[2020-07-02] MEDS: PIPERACILLIN/TAZOBACTAM 3,375 MG in SODIUM CHLORIDE 0.9% 100 ML IV SCH ×3 (01:26→16:34)
[2020-07-02] MEDS: PANTOPRAZOLE 40 MG TABLET PO SCH (05:31)
[2020-07-02] MEDS: HYDROmorphone 2 MG/1 ML VIAL IV PRN ×5 (06:03→18:34)
[2020-07-02] MEDS: METOCLOPRAMIDE 5 MG TABLET PO SCH ×4 (07:28→20:05)
[2020-07-02] MEDS: predniSONE 5 MG TABLET PO SCH (08:30)
[2020-07-02] MEDS: GABAPENTIN 600 MG TABLET PO SCH ×4 (08:30→20:05)
[2020-07-02] MEDS: SERTRALINE 100 MG TABLET PO SCH (08:30)
[2020-07-02] MEDS: CYCLOBENZAPRINE 10 MG TABLET PO SCH ×3 (08:30→20:05)
[2020-07-02 12:47] LABS: Bilirubin,Urine Negative (Negative); Blood, Urine Negative (Negative); Glucose,Urine (UA) Negative (Negative); Ketones,Urine Negative (Negative); Nitrite,Urine Negative (Negative); Protein,Urine Negative; Urine Appearance CLEAR (Clear); Urine Color Colorless (Yellow); Urine Specific Gravity 1.003 (1.001-1.035); Urine Urobilinogen < 2.0 EU/DL (0.2-1.0)
[2020-07-02] MEDS: ZALEPLON 5 MG CAPSULE PO SCH (20:05)
[2020-07-02] MEDS: SIMVASTATIN 20 MG TABLET PO SCH (20:05)
[2020-07-03] MEDS: PIPERACILLIN/TAZOBACTAM 3,375 MG in SODIUM CHLORIDE 0.9% 100 ML IV SCH (01:06)
[2020-07-03] MEDS: HYDROmorphone 2 MG/1 ML VIAL IV PRN ×3 (06:21→11:16)
[2020-07-03] MEDS: PANTOPRAZOLE 40 MG TABLET PO SCH (06:29)
[2020-07-03] MEDS: GABAPENTIN 600 MG TABLET PO SCH ×2 (08:31→12:31)
[2020-07-03] MEDS: METOCLOPRAMIDE 5 MG TABLET PO SCH ×2 (08:31→11:26)
[2020-07-03] MEDS: predniSONE 5 MG TABLET PO SCH (08:31)
[2020-07-03] MEDS: SERTRALINE 100 MG TABLET PO SCH (08:31)
[2020-07-03] MEDS: CYCLOBENZAPRINE 10 MG TABLET PO SCH (08:31)
[2020-07-03] MEDS ORDERED: AMOXICILLIN/CLAV 875 MG TABLET PO SCH (09:00)
[2020-07-03 11:44] VITALS: BP 123/68
== END 2020-07-03 13:58 | disposition home health service (06) | DRG 907 ==
LOC: N.ED 19:24 → N.5E 06-29 01:09 → N.EDINP 06-29 03:08 → N.5E 06-29 03:50
PROVIDERS: ADMIT Surgery; ATTEND Surgery